=== PATIENT | male | born 1985 | race Caucasian/White ===

== ENCOUNTER 2016-06-10 21:48 | Emergency (ER) | payer OTHER ==
[2016-06-11] MEDS ORDERED: ONDANSETRON 4 MG TAB.RAPDIS PO ONE (01:55)
[2016-06-11 02:45] LABS: ABSOLUTE EOSINOPHILS # (AUTO) 0.2 10^3/uL (0.0-0.6); ABSOLUTE LYMPHOCYTES (AUTO) 2.9 10^3/uL (0.5-4.7); ABSOLUTE MONOCYTES (AUTO) 0.6 10^3/uL (0.1-1.4); ABSOLUTE NEUT (AUTO) 4.4 10^3/uL (1.7-8.2); BASOPHILS % (AUTO) 0.4 % (0-2); HEMATOCRIT 45.6 % (37.9-51.0); HEMOGLOBIN 14.9 g/dL (13.5-17.0); HGB HCT DIFFERENCE -0.9; LYMPHOCYTES % (AUTO) 35.5 % (13-45); MEAN CORPUSCULAR HEMOGLOBIN 28.4 pg (27.0-33.4); MEAN CORPUSCULAR HGB CONC 32.7 g/dL (32.0-36.0); MEAN CORPUSCULAR VOLUME 87 fl (80-97); MONOCYTES % (AUTO) 6.9 % (3-13); RED BLOOD COUNT 5.25 10^6/uL (4.35-5.55); RED CELL DISTRIBUTION WIDTH 14.1 % (11.5-14.0); SEGMENTED NEUTROPHILS % (AUTO) 54.2 % (42-78); WHITE BLOOD COUNT 8.2 10^3/uL (4.0-10.5)
[2016-06-11 02:52] LABS: ALANINE AMINOTRANSFERASE 41 U/L (21-72); ALKALINE PHOSPHATASE 49 U/L (38-126); ANION GAP 9 (5-19); APPEARANCE,URINE CLEAR; ASPARTATE AMINO TRANSFERASE 31 U/L (17-59); BILIRUBIN,DIRECT 0.3 mg/dL (0.0-0.4); BILIRUBIN,TOTAL 0.6 mg/dL (0.2-1.3); BILIRUBIN,URINE NEGATIVE (NEGATIVE); BLOOD UREA NITROGEN 15 mg/dL (7-20); CALCIUM 9.5 mg/dL (8.4-10.2); CARBON DIOXIDE 28 mmol/L (22-30); CHLORIDE 105 mmol/L (98-107); CREATININE RESULT 1.22 mg/dL (0.52-1.25); GLUCOSE 96 mg/dL (75-110); GLUCOSE, URINE NEGATIVE (NEGATIVE); KETONES,URINE NEGATIVE (NEGATIVE); LEUKOCYTE ESTERASE,URINE NEGATIVE (NEGATIVE); LIPASE 113.1 U/L (23-300); NITRITE,URINE NEGATIVE (NEGATIVE); POTASSIUM 5.2 mmol/L (3.6-5.0); PROTEIN,URINE NEGATIVE (NEGATIVE); SODIUM 142.1 mmol/L (137-145); TOTAL PROTEIN 6.6 g/dL (6.3-8.2); URINE SPECIFIC GRAVITY 1.009; UROBILINOGEN,URINE NEGATIVE mg/dL (<2.0)
[2016-06-11 03:02] LABS: ALCOHOL < 10 mg/dL (NONE DETECTED)
[2016-06-11] MEDS ORDERED: LIDOCAINE 2% VISCOUS SOLN 20 ML UDCUP PO ONE (03:07)
[2016-06-11] MEDS ORDERED: ACETAMINOPHEN 325 MG TABLET PO ONE (03:07)
[2016-06-11] MEDS ORDERED: MAG HYDROX/AL HYDROX/SIMETH SUSP 30 ML UDCUP PO ONE (03:07)
--- NOTE | 2016-06-11 03:13 | ER Document Report ---
ED GI/ - General Chief Complaint: Abdominal Pain Stated Complaint: NAUSEA,ABDOMINAL PAIN Notes: Patient is a 31 year old male who presents emergency Department complaining of right lower quadrant pain that started at 9 PM. Patient states that it is located in the right lower quadrant is constant as a dull ache in with certain movements as a sharp fleeting stabbing pain. Currently a 3 out of 5 in severity. Patient states that he has had one episode of emesis which was food from today without any evidence of blood or hematemesis. Also admits to 2 loose bowel movements today without any evidence of bright red blood per rectum or hematochezia. Current activity he admits to for the past 2 weeks has been binging on GENELINK. Patient states that his 's grandmother about one year ago and that she's been coping with this loss with drinking over the past 2 weeks and he has been drinking her. States he has been having 25-30 drinks a week for the past 2 weeks but quit 3 days ago. Denies any seizure activity, tremors. Just nausea and this abdominal pain. Denies any fever or chills. He did take OTC Anacin prior to arrival and states that his pain improved with this medication Past medical history denies Past surgical history significant for tonsils and adenoids but denies any history of cholecystectomy, appendectomy or any intra-abdominal procedure. Social history denies any tobacco or drug use. Line does not have primary care provider Denies any drug allergies TRAVEL OUTSIDE OF THE [place] IN LAST 30 DAYS: No - Related Data Allergies/Adverse Reactions: No Known Allergies Allergy (Unverified 06/17/15 18:00) Past Medical History - Social History Smoking Status: Unknown if Ever Smoked Frequency of alcohol use: None Drug Abuse: None Family History: Reviewed & Not Pertinent Patient has suicidal ideation: No Patient has homicidal ideation: No Renal/ Medical History: Denies: Hx Peritoneal Dialysis Review of Systems - Review of Systems Constitutional: No symptoms reported EENT: No symptoms reported Cardiovascular: No symptoms reported Respiratory: No symptoms reported Gastrointestinal: See HPI -: Yes All other systems reviewed and negative Physical Exam - Vital signs Vitals: Temp Pulse Resp BP Pulse Ox 97.9 F 66 16 150/94 H 99 06/10/16 21:57 06/10/16 21:57 06/10/16 21:57 06/10/16 21:57 06/10/16 21:57 - Notes Notes: PHYSICAL EXAM GENERAL: Alert, interacts well. HEAD: Normocephalic, atraumatic. EYES: Pupils equal, round, and reactive to light. Extraocular movements intact. ENT: Oral mucosa moist, tongue midline. NECK: Full range of motion. Supple. Trachea midline. LUNGS: Clear to auscultation bilaterally, no wheezes, rales, or rhonchi. No respiratory distress. HEART: Regular rate and rhythm. No murmurs, gallops, or rubs. ABDOMEN: Soft, nondistended, mildly tender in epigastrum. No guarding, rebound , or rigidity.. Bowel sounds present in all 4 quadrants. EXTREMITIES: Moves all 4 extremities spontaneously. No edema, radial and dorsalis pedis pulses 2/4 bilaterally. No cyanosis. NEUROLOGICAL: Alert and oriented x4. Normal speech. PSYCH: Normal affect, normal mood. SKIN: Warm, dry, normal turgor. No rashes or lesions noted. Course - Re-evaluation Re-evalutation: 06/11/16 03:27 Patient is a 31-year-old male who is hemodynamically stable, no acute distress and afebrile. Patient is clinically sober, no evidence of acute alcohol intake. No evidence or concern for delirium tremens or withdrawal. Labs have come back showing no acute abnormalities. Will conduct a PO trial and Patient tolerated by mouth trial without any difficulty. At this time patient has mild abdominal pain that is responded well to by mouth medications. At this time vital signs nor do physical exam or laboratory findings suggest any acute abdominal pathology therefore I do not feel additional imaging is required. Patient is stable for discharge, can follow-up with primary care. - Vital Signs Vital signs: Temp Pulse Resp BP Pulse Ox 97.7 F 65 16 146/88 H 99 06/11/16 04:18 06/11/16 04:18 06/11/16 04:18 06/11/16 04:18 06/11/16 04:18 - Laboratory Result Diagrams: 06/11/16 02:20 06/11/16 02:20 Laboratory results interpreted by me: 06/11/16 06/11/16 02:20 02:20 RDW 14.1 H Potassium 5.2 H Discharge - Discharge Clinical Impression: Abdominal pain Condition: Good Disposition: HOME, SELF-CARE Instructions: Observation for Appendicitis ([facility]), Abdominal Pain ([facility]), Antinausea Medication ([facility]) Prescriptions: Omeprazole Magnesium [Prilosec Otc] 20 mg PO DAILY 10 Days Ondansetron [Zofran Odt 4 mg Tablet] 1 - 2 tab PO Q4H PRN #15 tab.rapdis PRN Reason: For Nausea/Vomiting Sucralfate [Carafate 1 gm Tablet] 1 gm PO ACHS #120 tablet Forms: Elevated Blood Pressure, Return to Work Referrals: ELIECER SHABAZZ MD [ACTIVE STAFF] - Follow up in 3-5 days
[2016-06-11 04:23] VITALS: BP 146/88
== END 2016-06-11 04:25 | disposition home or self-care (01) ==
LOC: ER 21:48
DX: R10.31 Right lower quadrant pain (principal); R10.816 Epigastric abdominal tenderness; R11.2 Nausea with vomiting, unspecified; R19.4 Change in bowel habit
CPT/HCPCS: 99284; 36415; 80307; 83690; 85025; 80053; 81001; S0119; J3490

== ENCOUNTER 2017-04-23 03:10 | Emergency (ER) | payer BC, OTHER ==
[2017-04-23 03:16] VITALS: BP 161/96
[2017-04-23] MEDS ORDERED: ACETAMINOPHEN 325 MG TABLET PO ONE (03:47)
--- NOTE | 2017-04-23 03:52 | ER Document Report ---
HPI - HPI Pain Level: 2 Notes: Patient is a 32-year-old male who presents to the ED complaining of nasal congestion/discharge, dry nonproductive cough, fever, body ache 2 days. Patient states that he is still eating and drinking without difficulties, but does have a decreased p.o. intake. He is still urinating normally having normal bowel movements. Patient has not been using [id number] meds for symptoms. He denies any significant past medical history including cardiopulmonary history and immunocompromised conditions. Patient denies any smoking or IV drug use. Patient requesting work note. Denies any current headache, neck pain, sore throat, chest pain, palpitations, syncope, shortness of breath, wheeze, dyspnea, abdominal pain, nausea/vomiting/diarrhea, urinary retention, dysuria, hematuria, or rash. - ROS Systems Reviewed and Negative: Yes All other systems reviewed and negative - EENT EENT: DENIES: Sore Throat, Ear Pain, Eye problems - NEURO Neurology: REPORTS: Headache - RESPIRATORY Respiratory: REPORTS: Coughing Past Medical History - Social History Smoking Status: Never Smoker Family History: Reviewed & Not Pertinent Patient has suicidal ideation: No Patient has homicidal ideation: No Renal/ Medical History: Denies: Hx Peritoneal Dialysis Vertical Provider Document - CONSTITUTIONAL Agree With Documented VS: Yes Notes: PHYSICAL EXAMINATION: GENERAL: Well-appearing, well-nourished and in no acute distress. A&Ox4. Answers questions appropriately. Moves comfortably w/o notable distress HEAD: Atraumatic, normocephalic. EYES: Pupils equal round and reactive to light, extraocular movements intact, sclera anicteric, conjunctiva are normal. ENT: EAC clear b/l. TM's intact b/l without erythema, fluid, or perforation. Nares patent and with clear discharge. oropharynx no erythema without exudates. No tonsilar hypertrophy without erythema or exudate. No palatine shift. Uvula midline. No tongue protrusion. No drooling, hoarseness, or airway compromise. Moist mucous membranes. No sinus tenderness. NECK: Normal range of motion, supple without lymphadenopathy. No rigidity/ meningismus. LUNGS: Breath sounds clear to auscultation bilaterally and equal. No wheezes rales or rhonchi. No retractions HEART: Regular rate and rhythm without murmurs, rubs, gallops. ABDOMEN: Soft, nontender, nondistended abdomen. No guarding, no rebound. No masses appreciated. Normal bowel sounds present. No CVA tenderness bilaterally. No hepatosplenomegaly. NEUROLOGICAL: Normal speech, normal gait. Normal sensory, motor exams PSYCH: Normal mood, normal affect. SKIN: Warm, Dry, normal turgor, no rashes or lesions noted. - INFECTION CONTROL TRAVEL OUTSIDE OF THE [place] IN LAST 30 DAYS: No - RESPIRATORY O2 Sat by Pulse Oximetry: 99 Course - Re-evaluation Re-evalutation: 04/23/17 03:49 Patient is a well-hydrated, 32-year-old male who presents to the ED with low grade fever & acute URI, suspect influenza. Vitals are stable. PE is otherwise unremarkable. No labs or imaging warranted at this time based on H& P. Patient has no significant cardiopulmonary or immunocompromised medical conditions. Patient's lungs are clear to auscultation bilaterally without tachycardia, hypoxia, or tachypnea. Patient is tolerating p.o. without any difficulties. Thoroughly reviewed the risks, benefits, potential side effects, estimated cost without insurance with patient. After thorough review, patient would like Tamiflu at this time. Low suspicion for any meningitis, sepsis, peritonsillar/pharyngeal abscess, respiratory compromise, severe dehydration, or other emergent systemic condition at this time. Patient is aware this condition can change from initial presentation and he needs to monitor symptoms closely. Tylenol given PO today. Conservative measures otherwise for symptoms. Recheck with your PCM in 3-5 days. Return to the ED with any worsening/concerning symptoms otherwise as reviewed in discharge. Patient is in agreement. - Vital Signs Vital signs: Temp Pulse Resp BP Pulse Ox 100.4 F 94 17 161/96 H 99 04/23/17 03:14 04/23/17 03:14 04/23/17 03:14 04/23/17 03:14 04/23/17 03:14 Discharge - Discharge Clinical Impression: Acute URI, Influenza Condition: Stable Disposition: HOME, SELF-CARE Instructions: Influenza ([facility]), Upper Respiratory Illness ([facility]) Additional Instructions: Maintain adequate fluid intake Take meds as directed tylenol/ibuprofen as needed over the counter cold medication as needed for symptoms Humidified air may help Wash your hands regularly Wear a mask when coughing F/u: with your PCM in 3-5 days for a recheck Return to the ED with any fever, worsening pain, chest pain, palpitations, syncope, worsening RODRIGUEZ, neck pain/stiffness, shortness of breath, wheezing, drooling, trouble swallowing/breathing, abdominal pain, n/v/d, rash, or worsening/concerning symptoms otherwise. Prescriptions: Oseltamivir Phosphate [Tamiflu 75 mg Capsule] 75 mg PO BID #10 capsule Forms: Elevated Blood Pressure, Return to Work Referrals: [facility] [Provider Group] - Follow up as needed [facility] [Provider Group] - Follow up as needed
== END 2017-04-23 04:00 | disposition home or self-care (01) ==
LOC: ER 03:10
DX: J11.1 Influenza due to unidentified influenza virus with other respiratory manifestations (principal); R05 Cough; R50.9 Fever, unspecified
CPT/HCPCS: 99283